=== PATIENT | female | born 1950 | race Caucasian/White ===

== ENCOUNTER 2024-06-04 05:14 | Observation (INO) | payer OTHER, SELFPAY ==
[2024-06-03 23:45] VITALS: BP 137/66
[2024-06-04] VITALS (16 sets, daily range): BP systolic 101–150; BP diastolic 50–81; PULSE 81–84; O2SAT 93
[2024-06-04 00:35] LABS: Glucose - Point of Care 130 mg/dl (70-99)
[2024-06-04] MEDS: MORPHINE SULFATE 4 MG IV (00:56)
[2024-06-04 01:20] LABS: Glucose - Point of Care 155 mg/dl (70-99)
--- NOTE | 2024-06-04 02:19 | ED.GENMED ---
History of Present Illness
General
Chief Complaint: Fall
Source: patient
Time Seen by Provider: 06/04/24 00:33
History of Present Illness
History of Present Illness:
73-year-old female presents after she fell in the bathroom. She was trying to put up a shower curtain when she fell and hit the edge of the tub. The patient complains of left anterior chest wall discomfort just below the breast on the left.
States it hurts to breathe. Does not necessarily feel short of breath. No abdominal pain. No fevers.
Past History
Past History
ED Past Medical History: Asthma, IDDM and Other (Hypothyroidism, stress incontinence, pneumonia)
ED Past Surgical History: Orthopedic
Social History
Tobacco: Non-smoker
Alcohol: Occasional
Drug: None
Phy Exam
Physical Exam
Physical Exam:
CONSTITUTIONAL Patient alert and oriented to person, place and time. Well-appearing. Vital signs reviewed.
HEAD atraumatic, normocephalic.
EYES eyelids normal to inspection, Extraocular muscles intact, Conjunctiva normal, Sclera normal.
NECK normal range of motion, Trachea midline, no jugular venous distention.
RESPIRATORY CHEST No respiratory distress noted, Chest expansion equal, Bilateral breath sounds clear. Splinting noted during exam. She does have tenderness noted to the anterior aspect of the 7-9 ribs that is mild in nature. There is no crepitus
CARDIOVASCULAR regular rate and rhythm, Heart sounds normal.
ABDOMEN abdomen nontender, Bowel sounds normal. No distention.
BACK normal inspection, no obvious deformities
UPPER EXTREMITY range of motion normal, Motor strength normal, no cyanosis, no edema.
LOWER EXTREMITY range of motion normal, Motor strength normal, no cyanosis, no edema. Chronic venous stasis changes noted bilaterally
NEURO Speech normal, No focal motor deficits, [place] coma scale 15, Memory normal, Cranial Nerves intact to screening exam.
SKIN skin warm, dry, and normal in color.
Course
Orders/Labs/Results
Orders:
Orders
06/04/24 00:11
Ribs, Left 3 View W/PA Chest CR [CR Ribs-left 3 Vw W/pa Chest] Urgent
Comment:
Reason For Exam: Fall onto pain
06/04/24 00:44
Morphine Sulfate 4 mg .ROUTE .STK-MED ONE
06/04/24 00:55
Morphine Sulfate 4 mg IV NOW STA
06/04/24 02:19
Ketorolac [Toradol] 30 mg IM NOW STA
06/04/24 02:38
CT Chest W/o Iv Contrast Urgent
Comment:
Reason For Exam: fall, L sided pain, sob
06/04/24 02:58
Complete Blood Count/With Diff Urgent
Comprehensive Metabolic Panel Urgent
06/04/24 03:33
Ipratropium/Albuterol Sulfate [Duoneb] 3 ml INH R NOW STA
06/04/24 04:55
Admit/Transfer Patient As Directed
Co-Sign Provider:
Level of Care: Observation services
Assign to:: Telemetry
Physician / Group: Ravindra
Diagnosis: Rib Fractures
Reason for Telemetry: Chest Pain syndromes
Date to Stop Telemetry: 06/06/24
Time to Stop Telemetry: 11:00
PRN Pain Medication Management As Directed
May give lesser potent ordered pain med per pt: Yes
preference::
Protocol:: Medication orders for pain may be administered in a
manner that supports deferring to patient preference
when the pt is:
- Requesting an ordered lesser potent pain medication.
Least to most potent pain medications are defined
as: acetaminophen < NSAID < tramadol < opioids
(morphine, oxycodone, hydromorphone).
- Requesting a lesser dose of the same medication IF
ORDERED.
- Requesting a less intrusive route of administration
if both routes are prescribed by the provider (PO <
IV).
06/04/24 04:56
Code Status As Directed
Resuscitation Status: Full Code
06/04/24 05:35
Albuterol Nebs [Ventolin Nebules] 2.5 mg INH R Q4HPRN PRN
Dextrose 50%-Water [Dextrose 50% Syringe] 12.5 grams IV [id number] PRN
Glucagon [GlucaGen] 1 mg IM PRN PRN
HYDROmorphone [Dilaudid] 0.5 mg IV Q4HPRN PRN
Oxycodone [Roxicodone] 5 mg PO Q4HPRN PRN
06/04/24 05:35
Activity As Directed
Activity Level: Ambulate
With Assistance
Bedside Glucose Monitoring As Directed
Frequency: AC&HS
Additional Instructions:: Change to q6h if pt on TPN, tube feeding or not eating
I/O [Intake/ Output] As Directed
Frequency: Per unit guidelines
Pneumatic Compression Sleeves As Directed
Type: Knee high
Vital Signs As Directed
Frequency: Per unit guidelines
Weight As Directed
Frequency: Daily
Incentive Spirometry [Rx Incentive Spirometry] [RESP] Routine
Frequency: q1h while awake
Oxygen Therapy [O2 Therapy] [RESP] Routine
Titrate/Wean O2 to maintain O2 sat greater than (%): 94
Ot Eval And Treat Routine
PT Consult [Pt Eval And Treat] Routine
Activity Level: Ambulate
With Assistance
DX Deep Vein Thrombosis Video Routine
06/04/24 Breakfast
2000 calorie (17 carb) Diabetic
Basic Metabolic Panel IN AM
Complete Blood Count/No Diff IN AM
Glycohemoglobin (HgbA1c) IN AM
06/04/24 07:30
Insulin Aspart Corrective Low [Novolog Flexpen-Low Resistance] See Protocol SC AC
06/04/24 08:00
Acetaminophen [Tylenol] 1,000 mg PO TID
Atorvastatin [Lipitor] 20 mg PO DAILY
Cholecalciferol (Vitamin D3) [VITAMIN D3 (cholecalciferol)] 25 mcg PO DAILY
Levothyroxine [Synthroid] 50 mcg PO DAILY
empagliflozin [Jardiance] 10 mg PO DAILY
06/04/24 22:00
insulin degludec [Tresiba FlexTouch U-100] 30 unit SC HS
06/06/24 11:00
DC Protocol for Telemetry ONCE
Abnormal Lab Results
06/04/24 06/04/24 06/04/24
00:33 01:17 02:58
WBC 13.9 H 10^3/uL
(4.8-10.8)
MCHC 32.6 L g/dL
(33.0-37.0)
MPV 11.4 H fL
(7.4-10.4)
Abs Immat Gran (auto) 0.1 H 10^3/uL
(0-0.05)
Absolute Neuts (auto) 11.6 H 10^3/uL
(1.4-6.5)
Absolute Monos (auto) 0.8 H 10^3/uL
(0.1-0.6)
Neutrophils % 83.4 H %
(42.2-75.2)
Lymphocytes % 10.1 L %
(20.5-51.1)
BUN 20 H mg/dl
(7-17)
Glucose 166 H mg/dl
(70-99)
POC Glucose 130 H mg/dl 155 H mg/dl
(70-99) (70-99)
06/04/24 02:58
06/04/24 02:58
Vital Signs
Initial and Last Documented VS:
Initial Vital Signs
Temp Pulse Resp BP Pulse Ox
98.0 F 72 28 137/66 92
06/03/24 23:45 03/23/25 23:45 06/03/24 23:45 06/03/24 23:45 06/03/24 23:45
Last Documented Vital Signs
Temp Pulse Resp BP Pulse Ox
98.0 F 76 15 137/81 93
06/03/24 23:45 06/04/24 02:30 06/04/24 02:30 06/04/24 02:26 06/04/24 02:30
MDM/Problems Addressed
Differential Diagnosis Includes:
Rib fractures, flail segment, pneumothorax, abdominal injury
MDM/Problems Addressed:
Chest wall injury
*Radiology
Radiology exam reviewed: preliminary read by ED provider (No obvious pneumothorax, no obvious fractures) and radiology read reviewed
*Pulse Oximetry
Patient hypoxic: no
*Hand Hose Cutter Interpretation
Rate: normal
Interpretation: normal
*Critical Care Note
Total Time (30-74mins, 75-104mins- exclusive of procedures): Not Applicable
Data Reviewed
Source: patient
Further Testing Considered But Not Given:
Consider chest CT but no pneumothorax or obvious flail segment on plain films
Patient Management
Escalation/DeEscalation of care consider admission/obs:
Patient appears well. X-rays grossly unremarkable and feels little bit better. Still has pain with movement and breathing deeply. Will advise incentive spirometry and pain control.
0427 patient reassessed and does continue to require oxygen. CT performed does reveal 2 fractures that I did not initially see on plain film. No pneumothorax. Likely combination of splinting and history of asthma. Bronchodilators given. Admit
ED Attending Note
-
Portions of this chart may have been created with voice recognition software.� Occasional wrong word or��sound alike� substitutions may have occurred due to the inherent limitations of voice recognition software.
Discharge Plan
Departure
Patient Disposition: Admit
Date of Disposition: 06/04/24
Time of Disposition: 04:28
Admit to: Telemetry
Presentation/result/management discussed w/ accepting MD/DO: Hospitalist
Patient with high blood pressure during this ER visit?: No
Discharge Problem:
Fracture of rib, Hypoxia
Interventions
Interventions:
*Risk Screen - Suicide Last Done: 06/03/24 23:45
*General Assessment Last Done: 06/03/24 23:45
*Neglect/Abuse Screening Last Done: 06/03/24 23:45
*ED- Fall Risk Assessment Last Done: 06/03/24 23:45
*ED COVID-19 Vaccine History Last Done: 06/03/24 23:45
ED-Musculoskeletal Assessment Last Done: 06/04/24 00:00
ED- Neurological Assessment Last Done: 06/04/24 00:00
ED-Skin Assessment Last Done: 06/04/24 00:00
[2024-06-04] MEDS: TORADOL 30 MG IM (02:27)
[2024-06-04 03:15] LABS: % Basophils 0.4 % (0-2); % Eosinophils 0.2 % (0-6); % Immature Granulocytes 0.4 % (0-0.5); % Lymphocytes 10.1 % (20.5-51.1); % Monocytes 5.5 % (1.7-9.3); % Neutrophils 83.4 % (42.2-75.2); Absolute Basophils 0.1 10^3/uL (0-0.2); Absolute Immature Granulocytes 0.1 10^3/uL (0-0.05); Absolute Lymphocytes 1.4 10^3/uL (1.2-3.4); Absolute Monocytes 0.8 10^3/uL (0.1-0.6); Absolute Neutrophils 11.6 10^3/uL (1.4-6.5); Hematocrit 45.7 % (37.0-47.0); Hemoglobin 14.9 g/dL (12.0-16.0); Mean Corp Hgb Conc. 32.6 g/dL (33.0-37.0); Mean Corpuscular Hgb 29.5 pg (27.0-31.0); Mean Corpuscular Volume 90.5 fL (81.0-99.0); Mean Platelet Volume 11.4 fL (7.4-10.4); Nucleated Red Blood Cells % 0 %; Platelet Count 176 10^3/uL (130-400); Red Blood Cell Count 5.05 10^6/uL (4.20-5.40); White Blood Cell Count 13.9 10^3/uL (4.8-10.8)
[2024-06-04 03:31] LABS: ALT (SGPT) 28 U/L (0-35); AST (SGOT) 29 U/L (14-36); Albumin 4.2 g/dl (3.5-5.0); Alkaline Phosphatase 104 U/L (38-126); Blood Urea Nitrogen 20 mg/dl (7-17); Calcium 9.3 mg/dl (8.4-10.2); Carbon Dioxide 27 mmol/L (22-30); Chloride 107 mmol/L (98-107); Estimated Creatinine Clearance 58 ml/min; Glucose 166 mg/dl (70-99); Potassium 4.5 mmol/L (3.5-5.1); Sodium 141 mmol/L (135-145); Total Bilirubin 0.5 mg/dl (0.2-1.3); Total Protein 6.8 g/dl (6.3-8.2); eGFR > 60.00
[2024-06-04] MEDS: DUONEB 3 ML INH (04:02)
--- NOTE | 2024-06-04 05:00 | HPS.HSE ---
Family Physician
-
Family Physician: NOT KNOW UNKNOWN - PT DOES
Chief Complaint
-
Chest Pain s/p Fall
History of Present Illness
Patient is a 73y F with PMH significant for mild asthma and DM-II who presents to ED complaining of left sided chest pain s/p fall this evening. Patient states that she was standing on the first step of a step ladder hanging a shower curtain and
fell into the tub. She states that she landed with her L chest on the edge of the tub. She denies striking her head, LOC, etc.
Patient noted significant pain in the L chest and was unable to take a full breath due to the pain.
She presented to the ED for further evaluation and treatment.
Medical History
Past Medical History
Past Medical History: Reports Other
Additional Past Medical History:
DM-II
Hypothyroidism
IBS-D
Mild Intermittent Asthma
Past Surgical History: Reports Other
Additional Past Surgical History:
Cholecystectomy
Vein Stripping
ORIF R Shoulder
Social History
Tobacco: Non-smoker
Alcohol: Occasional
Drug: None
Family History
Family History: Not pertinent
Allergies / Home Medications
Allergies reflects when Allergies were last updated in [employer].
Home Medications with original date entered in [employer]
Allergy/Medication List:
Allergies
Allergy/AdvReac Type Severity Reaction Status Date / Time
No Known Allergies Allergy Unverified 06/03/24 23:45
Home Medications
atorvastatin 20 mg tablet 20 mg PO DAILY 06/04/24
cholecalciferol (vitamin D3) 25 mcg (1,000 unit) capsule (Vitamin D3) 25 mcg PO DAILY 06/04/24
empagliflozin 10 mg tablet (Jardiance) 10 mg PO DAILY 06/04/24
glimepiride 4 mg tablet 4 mg PO BID 06/04/24
insulin degludec 100 unit/mL (3 mL) subcutaneous pen (Tresiba FlexTouch U-100 insulin) 30 unit SC HS 06/04/24
levothyroxine 50 mcg tablet 50 mcg PO DAILY 06/04/24
Review of Systems
-
History Source: Patient
A 12 point ROS was completed and negative except as noted: Yes
Constitutional: Denies Fever or Chills
Respiratory: Reports Trouble Breathing; Denies Cough
Cardiac: Reports Chest Pain; Denies Diaphoresis, Palpitations or Syncope
Abdomen/GI: Denies Abdominal Pain, Nausea, Vomiting or Diarrhea
: Denies Dysuria or Frequency
Musculoskeletal: Denies Joint Pain or Edema
Neurological: Denies Dizzy or Headache
Psych: Denies Depression or Anxiety
Physical Exam
Vital Signs
Vital Signs
Temp Pulse Resp BP Pulse Ox
98.0 F 76 15 137/81 93
06/03/24 23:45 06/04/24 02:30 06/04/24 02:30 06/04/24 02:26 06/04/24 02:30
Physical Exam
General: Other (73y F in mild distress due to pain.)
HEENT: Other (Dry MM. Neck supple.)
Respiratory: Other (Decreased BS due to diminished effort. No W/R/R.)
Cardiac: S1/S2 and Regular Rhythm; No Murmur
GI: Soft, Non Tender, Non Distended and Normal Bowel Sounds
Musculoskeletal: No Edema and Other (Tenderness over lateral / lower ribs on the L. No evident displacement.)
Neuro: AO x 3
Laboratory Results
-
06/04/24 02:58
06/04/24 02:58
Laboratory Results
Total Bilirubin 0.5 mg/dl (0.2-1.3) 06/04/24 02:58
AST 29 U/L (14-36) 06/04/24 02:58
ALT 28 U/L (0-35) 06/04/24 02:58
Alkaline Phosphatase 104 U/L (38-126) 06/04/24 02:58
Impression/Plan
-
A/P: Patient is a 73y F with PMH significant for asthma and DM-II who presents to ED complaining of L sided chest pain s/p fall at home.
Left Rib Fractures ()
Fall at Home
Mild Hypoxemia
- Observe overnight for further evaluation and treatment.
- Patient reportedly hypoxemic in the ED and is currently on supplemental oxygen.
- Recorded saturations are adequate - though this is on O2.
- Imaging reveals lateral, non-displaced fractures of L 9th and 10th ribs.
- No pneumothorax / underlying pulmonary abnormality.
- Pain control, incentive spirometry, supportive care.
- Follow for clinical improvement.
- Wean oxygen as able.
Mild Intermittent Asthma without Acute Exacerbation
- Stable. Albuterol PRN.
DM-II
- Stable. Continue basal insulin.
- Follow glucose and cover with SSI as needed.
- Update A1C.
Hypothyroidism
- Stable. Continue current T4 supplementation.
DVT Prophylaxis: SCDs
Code Status: Full
[2024-06-04 08:16] LABS: Glucose - Point of Care 145 mg/dl (70-99)
[2024-06-04] MEDS: TYLENOL 1000 MG PO ×3 (08:20→22:15)
[2024-06-04] MEDS: LIPITOR 20 MG PO (08:20)
[2024-06-04] MEDS: VITAMIN D3 (cholecalciferol) 25 MCG PO (08:21)
[2024-06-04] MEDS: FARXIGA 10 MG PO (08:21)
[2024-06-04 08:26] LABS: Hemoglobin 13.9 g/dL (12.0-16.0); Mean Corp Hgb Conc. 32.3 g/dL (33.0-37.0); Mean Corpuscular Hgb 29.4 pg (27.0-31.0); Mean Corpuscular Volume 91.1 fL (81.0-99.0); Mean Platelet Volume 11.4 fL (7.4-10.4); Platelet Count 168 10^3/uL (130-400); Red Blood Cell Count 4.72 10^6/uL (4.20-5.40); White Blood Cell Count 9.7 10^3/uL (4.8-10.8)
[2024-06-04] MEDS: NOVOLOG FLEXPEN-LOW RESISTANCE SC ×2 (08:46→17:51)
[2024-06-04 09:10] LABS: Blood Urea Nitrogen 23 mg/dl (7-17); Calcium 9.3 mg/dl (8.4-10.2); Chloride 106 mmol/L (98-107); Estimated Creatinine Clearance 58 ml/min; Potassium 4.6 mmol/L (3.5-5.1); Sodium 140 mmol/L (135-145); eGFR > 60.00
[2024-06-04 09:24] LABS: Carbon Dioxide 25 mmol/L (22-30); Glucose 164 mg/dl (70-99)
[2024-06-04 09:36] LABS: Glycohemoglobin (HgbA1c) 7.5 % (4.0-5.6)
[2024-06-04 11:36] LABS: Glucose - Point of Care 200 mg/dl (70-99)
[2024-06-04] MEDS: NOVOLOG FLEXPEN-LOW RESISTANCE 2 UNITS SC (12:28)
--- NOTE | 2024-06-04 12:36 | W.PN.UPDATE ---
Update Note
Progress Note Update
Seen and examined independent of overnight physician. Patient currently eating breakfast. States her pain is improved. Remains on oxygen.
General:eating breakfast,. no in distress/pain
HEENT: Other (Dry MM. Neck supple.)
Respiratory: Other (Decreased BS due to diminished effort. No W/R/R.), oxygen, NC
Cardiac: S1/S2 and Regular Rhythm; No Murmur
GI: Soft, Non Tender, Non Distended and Normal Bowel Sounds
Musculoskeletal: no edema
Neuro: AO x 3
A/P: Patient is a 73y F with PMH significant for asthma and DM-II who presents to ED complaining of L sided chest pain s/p fall at home.
Left Rib Fractures ()
Fall at Home
Mild Hypoxemia
- Patient reportedly hypoxemic in the ED and is currently on supplemental oxygen.
- Recorded saturations are adequate - though this is on O2.
- Imaging reveals lateral, non-displaced fractures of L 9th and 10th ribs.
- No pneumothorax / underlying pulmonary abnormality.
- Pain control, incentive spirometry, supportive care.
- Follow for clinical improvement.
- Wean oxygen as able.
Mild Intermittent Asthma without Acute Exacerbation
- Stable. Albuterol PRN.
DM-II
- Stable. Continue basal insulin.
- Follow glucose and cover with SSI as needed.
- Update A1C.
Hypothyroidism
- Stable. Continue current T4 supplementation.
DVT Prophylaxis: SCDs
Code Status: Full
Dispo-wean o2. IS ordered. OOB/Rehab. Possible dc later today if stable off oxygen
[2024-06-04] MEDS: ROXICODONE 5 MG PO ×3 (13:40→22:54)
--- NOTE | 2024-06-04 15:39 | CM ---
Patient seen at bedside
IA completed
OBS status - BY[facility] form explained & signed. In chart
Lives alone in a condo, 2nd floor with elevator access
PLOF: Independent
DME: cane
Has had VN in past (in [place]), & Rehab does not recall name
PT eval - no needs
PCP: Feliz Nickerson
Pharmacy: [facility], [address], [place]
PLAN: Home, no needs
daughter to transport
[2024-06-04 17:49] LABS: Glucose - Point of Care 118 mg/dl (70-99)
--- NOTE | 2024-06-04 19:24 | PTCARENOTE ---
Pt. found to be satting 89-90% on RA at change of shift. Pt. placed back on 2L NC, pulse ox 93-94%. Pt. resting comfortably at this time. Plan of care continues.
[2024-06-04 21:41] LABS: Glucose - Point of Care 219 mg/dl (70-99)
[2024-06-04] MEDS: LANTUS 0.3 UNITS SC (22:15)
[2024-06-05 03:12] VITALS: BP 113/65
[2024-06-05] MEDS: SYNTHROID 50 MCG PO (04:59)
[2024-06-05] MEDS: ROXICODONE 5 MG PO (04:59)
[2024-06-05 05:29] VITALS: BMI 35.0
[2024-06-05 07:19] VITALS: BP 136/63
[2024-06-05 08:17] LABS: Glucose - Point of Care 107 mg/dl (70-99)
[2024-06-05] MEDS: FARXIGA 10 MG PO (08:17)
[2024-06-05] MEDS: TYLENOL 1000 MG PO ×2 (08:17→15:08)
[2024-06-05] MEDS: VITAMIN D3 (cholecalciferol) 25 MCG PO (08:17)
[2024-06-05] MEDS: NOVOLOG FLEXPEN-LOW RESISTANCE SC ×2 (08:17→12:38)
[2024-06-05] MEDS: LIPITOR 20 MG PO (08:17)
[2024-06-05] MEDS: ULTRAM 25 MG PO (08:18)
--- NOTE | 2024-06-05 09:16 | PTCARENOTE ---
pt aaox3. states pain in left ribs. pain med given as ordered. pt ambulating in room self. room air pulse ox 97%
--- NOTE | 2024-06-05 10:54 | W.PN.HOSP.TC ---
Today's Communication/Plan
-
dc home
pain control
Assessment / Plan
Assessment / Plan
General:eating breakfast,. no in distress/pain, ambulating in room
HEENT:neck is supple. eye glasses noted,
Respiratory:dec bs, not tachypneic, not using accessory muscle
Cardiac: S1/S2 and Regular Rhythm; No Murmur
GI: Soft, Non Tender, Non Distended and Normal Bowel Sounds
Musculoskeletal: no edema
Neuro: AO x 3
A/P: Patient is a 73y F with PMH significant for asthma and DM-II who presents to ED complaining of L sided chest pain s/p fall at home.
Left Rib Fractures ()
Fall at Home
Acute hypoxic respiratory insufficiency
- Imaging reveals lateral, non-displaced fractures of L 9th and 10th ribs.
- No pneumothorax / underlying pulmonary abnormality.
- Pain control, incentive spirometry, supportive care.
- Follow for clinical improvement.
- on room air.
- plan for tylenol atc, ibuprofen, tramadol and oxycodone. Pt understands to take bowel regimen.
Mild Intermittent Asthma without Acute Exacerbation
- Stable. Albuterol PRN.
DM-II
- Stable. Continue basal insulin.
- Follow glucose and cover with SSI as needed.
- Update A1C at 7.5
Hypothyroidism
- Stable. Continue current T4 supplementation.
DVT Prophylaxis: SCDs
Code Status: Full
All patient questions were answered. 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
Understands to avoid driving while on opioids. States she usually does not drive much and daughter takes her to appointments and such.
More than 30 minutes spent in discharge including
Final examination of the patient
Summarizing hospital stay
Instructions for continuing care to all relevant caregivers
Preparation of discharge records, prescriptions, and referral forms
Total time spent (in minutes): 55
Anticipated Discharge: Today
Subjective/Interval History
-
Date of Service: June 05, 2024
states of intermittent rib cage pain
ambulating in room
using incentive spirometer
Objective Data
-
Vital Signs:
Vital Signs
Temp Pulse Resp BP Pulse Ox
97.4 F 84 21 136/63 97
06/05/24 07:19 06/05/24 07:19 06/05/24 07:19 06/05/24 07:19 06/05/24 09:13
I&O
06/04/24 06/05/24 06/06/24
06:59 06:59 06:59
Intake Total 1130 / 1130
Balance 1130 / 1130
[2024-06-05 11:06] VITALS: BP 134/66
--- NOTE | 2024-06-05 11:07 | W.[place]-PDMP ---
[place]-PDMP
-
Checked the [place]- Prescription Drug Monitoring Program website, no red flags identified; safe to proceed with prescription.
--- NOTE | 2024-06-05 11:07 | W.DCSUMMARY ---
Discharge Summary
Discharge Data
Date of Admission: 06/04/24
Date of Discharge: 06/05/24
-
Pending Results: No
Hospital Course
73y F with PMH significant for asthma and DM-II who presents to ED complaining of L sided chest pain s/p fall at home. Patient underwent imaging study with CT of the chest and rib x-ray. Patient was found to have a left-sided rib fracture of
the rib 9 and 10. Patient required oxygenation which was weaned off. Patient pain was controlled with Tylenol, tramadol and oxycodone. Patient was ambulating without difficulty. Patient be discharged home on pain medication. Patient was
counseled avoid driving while on opioids. Encourage incentive spirometer use. Encouraged bowel regimen. 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
Discharge Plan
-
Patient Disposition: Home (Routine Discharge)
Discharge Diagnosis/Procedures: Left Rib Fractures (9/ 10)
Fall at Home
Mild Hypoxemia
Condition: Fair
Diet: Diabetic, Carb Controlled
Activity: As tolerated
Driving Restrictions: Avoid driving while on opiates
Instructions: Rib Fracture
Referrals:
UNKNOWN - PT DOES,NOT KNOW [Family Provider] - in less than 1 week
Prescriptions:
New
acetaminophen [Tylenol Extra Strength] 500 mg Tablet
1,000 mg PO TID 7 Days Qty: 42 0RF
oxycodone 5 mg Tablet
5 mg PO BID PRN (Reason: severe pain) Qty: 10 0RF
tramadol 25 mg tablet
25 mg PO TIDPRN PRN (Reason: mod pain) Qty: 15 0RF
Continued
atorvastatin 20 mg Tablet
20 mg PO DAILY
levothyroxine 50 mcg Tablet
50 mcg PO DAILY
glimepiride 4 mg Tablet
4 mg PO BID
cholecalciferol (vitamin D3) [Vitamin D3] 25 mcg (1,000 unit) Capsule
25 mcg PO DAILY
insulin degludec [Tresiba FlexTouch U-100] 100 unit/mL (3 mL) Insulin Pen
30 unit SC HS
Jardiance 10 mg Tablet
10 mg PO DAILY
Discharge Orders:
Discharge Patient (As Directed); Ordered 06/05/24
Ordered By: Aris Dowd
Discharge Date and Time
Print Language: ROMANIAN
[2024-06-05] MEDS: VENTOLIN NEBULES 2.5 MG INH (11:50)
--- NOTE | 2024-06-05 12:14 | CM ---
Patient seen at bedside
PT eval no needs
OBS status - BYRD form signed & in chart
PLAN: home, no needs
daughter to transport
[2024-06-05 12:29] LABS: Glucose - Point of Care 114 mg/dl (70-99)
[2024-06-05 15:03] VITALS: BP 142/65
== END 2024-06-05 15:24 | disposition home or self-care (01) ==
LOC: 2 SOUTH 05:14
PROVIDERS: ADMITTING PHYSICIAN Hospitalist; ATTENDING PHYSICIAN Hospitalist; EMERGENCY PHYSICIAN Emergency Medicine
DX: S22.42XA Multiple fractures of ribs, left side, initial encounter for closed fracture (principal); N64.4 Mastodynia; J45.20 Mild intermittent asthma, uncomplicated; E11.9 Type 2 diabetes mellitus without complications; E03.9 Hypothyroidism, unspecified; W19.XXXA Unspecified fall, initial encounter; J98.11 Atelectasis; Z79.899 Other long term (current) drug therapy
CPT/HCPCS: 71101; 71250; 80048; 80053; 82962; 83036; 85025; 85027; 94640; 96372; 96374; 97162; 97166; 99285